=== PATIENT | male | born 1980 | race Two or more races ===

== ENCOUNTER 2021-12-09 03:48 | Emergency (ER) | payer OTHER ==
[2021-12-09] MEDS ORDERED: Nitroglycerin 0.4 MG Tab.SL SL ONE (04:26)
[2021-12-09] MEDS ORDERED: Metoprolol Tartrate 25 MG Tab PO ONE (04:26)
[2021-12-09 04:27] LABS: ESTIMATED GFR 98 mL/min (>60)
[2021-12-09] MEDS ORDERED: Lisinopril 20 MG Tab PO STA (05:09)
== END 2021-12-09 05:25 ==
LOC: FB.ED 03:48
DX: R07.9 Chest pain, unspecified (principal); R00.2 Palpitations; I10 Essential (primary) hypertension; E11.9 Type 2 diabetes mellitus without complications; Z88.8 Allergy status to other drugs, medicaments and biological substances
CPT/HCPCS: 36415; 80053; 83036; 84484; 85025; 93005; 93010; 99282; 99285; A9270